=== PATIENT | female | born 1995 | race Two or more races ===

== ENCOUNTER 2021-07-24 09:08 | Inpatient (IN) | payer SELFPAY ==
[2021-07-24] MEDS ORDERED: Sodium Chloride 0.9% 10 ML Syringe FLUSH PRN (09:21)
[2021-07-24] MEDS ORDERED: Nalbuphine 10 MG/1 ML Vial IVPUSH PRN (09:21)
[2021-07-24] MEDS ORDERED: Ondansetron 4 MG/2 ML SDV IVPUSH PRN (09:21)
[2021-07-24] MEDS ORDERED: Calcium Carbonate 500 MG Tab.Chew PO PRN (09:21)
[2021-07-24] MEDS ORDERED: Acetaminophen 325 MG Tab PO PRN (09:21)
[2021-07-24] MEDS ORDERED: Oxytocin/Lactated Ringers 10 UNIT/1,000 ML BAG IV SCH ×2 (09:30)
[2021-07-24] MEDS: Lactated Ringers 1,000 ML IV SCH ×3 (10:13→23:42)
--- NOTE | 2021-07-24 10:57 | PCM.LDHP ---
L&D History of Present Illness - General Date of Service: 07/24/21 Admit Problem/Dx: Patient Status Order with Admit Dx/Problem 07/24/21 09:22 Patient Status [ADT] Routine Admission Diagnosis/Problem Admission Diagnosis/Problem 07/24/21 10:46 Johanne is a 25-year-old 1 para 0 female presently at 38-5/7 weeks gestational age with an COCO of 08/02/2021 was admitted to labor [facility] for induction of labor for nonreassuring testing with a BPP score of 4/8. Source of Information: Patient History Limitations: Reports: No Limitations - History of Present Illness Introduction:: Johanne is a 25-year-old 1 para 0 female presently at 38-5/7 weeks gestational age with an COCO of 08/02/2021 was admitted to labor and delivery for induction of labor for nonreassuring testing with a BPP score of 4/8. 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 She has been followed with weekly biophysical profiles since 32 weeks and monthly ultrasounds prior to that with good results. Her most recent ultrasound on 07/14/2021 prior to today showed growth at 24% with baby at 6 pounds 3 ounces estimated weight. 2-day routine testing with biophysical profile showed a lower biophysical profile score. Recommendation is that patient be brought into labor and delivery and undergo induction of labor. The procedure, risk, benefits, alternatives of care and p ossible increased risk for need of section are all discussed with patient and her . They appear to understand, wish to proceed and given verbal consent. 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 She had menarche at age 11. Cycles every 30 days. Her last menstrual period is fairly certain and started on 10/26/2020. She is not using any control at the time of conception. COCO is based upon this last menstrual period and is supported by multiple ultrasounds during the course of the . Patient's past obstetric history is relatively unremarkable. She denies any abnormal Pap smears. She did have chlamydia early in the and this was treated. Test of cure was negative. course: Patient was initially seen for this at 12 weeks and 2 days. She had an early ultrasound done at that time which correlated well with her LMP dating. She is seen on a very regular basis throughout the . testing was per routine with the exception of monthly ultrasounds because of her uterine anomaly. Her weight gain has been from a pregravid weight of 126 pounds to a weight at term at 159 pounds for a 33 pound increase. Fundal height growth has been appropriate with baby located on the right side of her abdomen in the right uterine horn. Her vital signs been stable. Blood pressures have been normal. Patient has a negative group B strep screen. Chlamydia test was positive early in and was treated. Test of cure was negative. She plans to breast-feed. Prequel noninvasive screen was negative. She has had her Tdap on 05/29/2021. She is rubella immune. Laboratory testing in shows her blood to be O+ with a negative antibody screen. Hemoglobin at first visit was 13.1 g/dL and platelets were 323,000. She is rubella immune. RPR is nonreactive. Urine culture was negative. Hepatitis B surface antigen and HIV assays were both negative. GC was negative. Chlamydia was positive as above and was treated. Second trimester laboratory testing showed a hemoglobin mildly decreased at 11.9 g/dL. Platelets were 307,000. 1 hour GTT was normal at 117. Group B strep screen was negative. Allergies: None Medications: 1. vitamins 1 daily Past medical history: Bicornuate uterus. Past surgical history unremarkable Family history: Mother is alive and well. Father is alive and well. Maternal grandfather is secondary to lung cancer. Was a non-smoker. Maternal grandmother is alive with history of cancer. Had a tumor in her stomach. Paternal grandfather is secondary to heart disease and hypertension related concerns. Paternal grandmother is cause unknown. 1 brother is alive and well. 1 sister is alive and well. No family history of cancer otherwise. No family history of bleeding, clotting, anesthesia, related problems. Social history: Patient is . is [place]. She does not use any significance alcohol, drugs or tobacco. She is a [id number] . Review of systems: Review of systems: In general patient has no complaints. Patient does report good activity. No contractions noted. Skin: Negative Lungs: No infectious symptoms or shortness of breath Cardiovascular: No chest pain or exercise intolerance Breasts: No lumps, changes in size, pain, dimpling, discharge or axillary or supraclavicular concerns. Patient plans to breast-feed. GI: Negative : N body habitus changes related to . Musculoskeletal: Negative Neurological: Negative Physical exam: In general the patient is well-developed, well-nourished, pleasant female of stated age in no acute distress. On last evaluation in clinic on 07/21/2021 patient blood pressure 118/70. Weight was 159.2 with pregravid weight of 126.4. Height is 5 feet 3 inches. Prepregnancy body mass index is 21.3. Skin is warm dry without lesions. HEENT, neck and back within normal limits. Lungs are clear with good breath sounds in all lung castañeda. Cardiovascular exam shows regular and rhythm without murmurs. Abdomen is gravid with last fundal height of 38 cm. Uterus on the right side of her abdomen secondary to right-sided uterine horn . Genital per digital exam shows cervix to be 80% effaced, closed, soft, mid position, -3. Baby is cephalic presenting. Extremities and neurological exam are grossly within normal limits. - Related Data Allergies/Adverse Reactions: Allergies Allergy/AdvReac Type Severity Reaction Status Date / Time No Known Allergies Allergy Verified 07/24/21 09:21 Past Medical History Genitourinary History: Reports: STD REAL ESTATE APPRAISER History: Reports: , Other (See Below) Other OB/BYN History: double edometrial cavities - Past Surgical History HEENT Surgical History: Reports: Oral Surgery Social & Family History - Family History Family Medical History: No Pertinent Family History H&P Review of Systems - Review of Systems: Review Of Systems: See Below L&D Exam - Exam Exam: See Below - Vital Signs Weight: 72.212 kg - Patient Data Lab Results Last 24 hrs: Laboratory Results - last 24 hr 07/24/21 07/24/21 07/24/21 Range/Units 09:40 09:40 09:40 WBC 10.02 (3.98-10.04) K/mm3 RBC 4.27 (3.98-5.22) M/mm3 Hgb 12.4 (11.2-15.7) gm/dl Hct 37.3 (34.1-44.9) % MCV 87.4 (79.4-94.8) fl MCH 29.0 (25.6-32.2) pg MCHC 33.2 (32.2-35.5) g/dl RDW Std Deviation 40.8 (36.4-46.3) fL Plt Count 261 (182-369) K/mm3 MPV 10.6 (9.4-12.3) fl Neut % (Auto) 74.0 H (34.0-71.1) % Lymph % (Auto) 14.8 L (19.3-51.7) % [place] % (Auto) 10.0 (4.7-12.5) % Eos % (Auto) 0.7 (0.7-5.8) Baso % (Auto) 0.2 (0.1-1.2) % Neut # (Auto) 7.42 H (1.56-6.13) K/mm3 Lymph # (Auto) 1.48 (1.18-3.74) K/mm3 [place] # (Auto) 1.00 H (0.24-0.36) K/mm3 Eos # (Auto) 0.07 (0.04-0.36) K/mm3 Baso # (Auto) 0.02 (0.01-0.08) K/mm3 SARS-CoV-2 RNA (OBEY) Negative (NEGATIVE) Blood Type O POSITIVE Result Diagrams: 07/24/21 09:40 - Problem List (1) 38 weeks gestation of SNOMED Code(s): 52883830 ICD Code: Z3A.38 - 38 WEEKS GESTATION OF Status: Acute Current Visit: Yes (2) Abnormal test SNOMED Code(s): 359256327, 203731295 ICD Code: O28.9 - UNSP ABNORMAL FINDINGS ON SCREENING OF MOTHER Status: Acute Current Visit: Yes (3) Bicornate uterus SNOMED Code(s): 98888752 ICD Code: Q51.3 - BICORNATE UTERUS Status: Acute Current Visit: Yes Problem List Initiated/Reviewed/Updated: Yes Orders Last 24hrs: Active Orders 24 hr Category Date Time Status Patient Status [ADT] Routine ADT 07/24/21 09:22 Active Activity as Tolerated [RC] PFP Care 07/24/21 09:22 Active Communication Order [RC] ASDIRECTED Care 07/24/21 09:22 Active Heart Tones [RC] ASDIRECTED Care 07/24/21 09:23 Active Non Stress Test [RC] PER UNIT ROUTINE Care 07/24/21 09:22 Active Notify Provider [RC] PFP Care 07/24/21 09:22 Active Notify Provider [RC] PRN Care 07/24/21 09:22 Active Peripheral IV Care [RC] . DIRECTED Care 07/24/21 09:23 Active Vital Signs [RC] PER UNIT ROUTINE Care 07/24/21 09:22 Active Regular Diet [DIET] Diet 07/24/21 Breakfast Active HEP C VIRUS AB [REF] Stat Lab 07/24/21 09:40 Received RAPID PLASMA REAGIN,RPR [CHEM] Routine Lab 07/24/21 09:40 Received TYPE AND SCREEN [BBK] Stat Lab 07/24/21 09:40 Results Acetaminophen [TylenoL] Med 07/24/21 09:21 Active 650 mg PO Q4H PRN Calcium Carbonate [Tums] Med 07/24/21 09:21 Active 1,000 mg PO Q2H PRN Lactated Ringers [Ringers, Lactated] 1,000 ml Med 07/24/21 09:30 Active IV ASDIRECTED Nalbuphine [Nubain] Med 07/24/21 09:21 Active 10 mg IVPUSH Q2H PRN Ondansetron [Zofran] Med 07/24/21 09:21 Active 4 mg IVPUSH Q4H PRN Oxytocin/Lactated Ringers [Pitocin in LR 10 Units/1,000 Med 07/24/21 09:30 Active ML] 10 unit in 1,000 ml IV .CONTINUOUS Oxytocin/Lactated Ringers [Pitocin in LR 10 Units/1,000 Med 07/24/21 09:30 Active ML] 10 unit in 1,000 ml IV TITRATE Sodium Chloride 0.9% [Saline Flush] Med 07/24/21 09:21 Active 10 ml FLUSH ASDIRECTED PRN Electronic Heart Tones Ext w TOCO [WOMSER] Oth 07/24/21 09:22 Ordered Routine Electronic Heart Tones Internal [WOMSER] Per Unit Oth 07/24/21 09:22 Ordered Routine Peripheral IV Insertion Adult [OM.PC] Routine Oth 07/24/21 09:22 Ordered Resuscitation Status Routine Resus Stat 07/24/21 09:21 Ordered Medication Orders Acetaminophen (Acetaminophen 325 Mg Tab) 650 mg PO Q4H PRN PRN Reason: Pain (Mild 1-3) and fever Calcium Carbonate/Glycine (Calcium Carbonate 500 Mg Tab.Chew) 1,000 mg PO Q2H PRN PRN Reason: Indigestion Oxytocin/Lactated Ringer's (Pitocin In Lr 10 Units/1,000 Ml) 10 unit in 1,000 mls @ 12 mls/hr IV TITRATE AZUCENA; Protocol Last Admin: 07/24/21 10:13 Dose: 2 munits/min, 12 mls/hr Documented by: KELLCOL Oxytocin/Lactated Ringer's (Pitocin In Lr 10 Units/1,000 Ml) 10 unit in 1,000 mls @ 500 mls/hr IV .CONTINUOUS AZUCENA Lactated Ringer's (Ringers, Lactated) 1,000 mls @ 100 mls/hr IV ASDIRECTED AZUCENA Last Admin: 07/24/21 10:13 Dose: 100 mls/hr Documented by: KELLCOL Nalbuphine HCl (Nalbuphine 10 Mg/1 Ml Vial) 10 mg IVPUSH Q2H PRN PRN Reason: Pain Ondansetron HCl (Ondansetron 4 Mg/2 Ml Sdv) 4 mg IVPUSH Q4H PRN PRN Reason: Nausea/Vomiting Sodium Chloride (Sodium Chloride 0.9% 10 Ml Syringe) 10 ml FLUSH ASDIRECTED PRN PRN Reason: Keep Vein Open Assessment/Plan Comment:: 1Shoaib Whiting is a 25-year-old 1 para 0 female presently at 38-5/7 weeks gestational age with an COCO of 08/02/2021 was admitted to labor and delivery for induction of labor for nonreassuring testing with a BPP score of 4/8. 2. Bicornate uterus with in the right uterine horn placing her at high risk for labor, malpresentation, uteroplacental insufficiency, growth restriction, increased risk for inability to tolerate labor. These are discussed in detail with patient and her . 3. Group B strep negative. 4. Patient desires epidural in labor delivery 5. Patient plans to breast-feed. 6. Patient had Tdap during the course of in May 2021 7. Patient is rubella immune. 8. Risk factors for the include the bicornate uterus, mild language barrier Plan: 1. Admit to labor and delivery for induction of labor. Will monitor heart tones closely. 2. Routine admission labs with COVID-19 testing, CBC, RPR. 3. Support breast-feeding decision 4. Epidural as needed for labor analgesia 5. Anticipate .
[2021-07-24] MEDS ORDERED: Oxytocin/Lactated Ringers 20 UNIT/1,000 ML BAG IV SCH ×2 (15:30→21:30)
[2021-07-24] MEDS ORDERED: ePHEDrine 50 MG/ML SDV IVPUSH PRN (15:45)
[2021-07-24] MEDS ORDERED: diphenhydrAMINE 50 MG/ML SDV IVPUSH PRN (15:45)
[2021-07-24] MEDS ORDERED: fentaNYL 100 MCG/2 ML SDV EPIDUR PRN (15:45)
[2021-07-25] MEDS: Bupivacaine/fentaNYL/NS 100 ML Bag EPIDUR PRN ×2 (00:02→08:05)
--- NOTE | 2021-07-25 00:24 | PCM.PREANE ---
Preanesthetic Assessment - Procedure Proposed Procedure: theo - Anesthesia/Transfusion/Family Hx Anesthesia History: Prior Anesthesia Without Reaction Family History of Anesthesia Reaction: No Transfusion History: No Prior Transfusion(s) - Review of Systems General: No Symptoms Pulmonary: No Symptoms Cardiovascular: No Symptoms Gastrointestinal: No Symptoms Neurological: No Symptoms Other: Reports: None - Physical Assessment Vital Signs: Last Vital Signs Temp 98 F 07/24/21 09:30 Pulse 77 07/24/21 09:30 Resp 15 07/24/21 09:30 BP 123/81 07/24/21 09:30 Pulse Ox 98 07/24/21 09:30 Height: 5 ft 3 in Weight: 72.212 kg ASA Class: 2 Mental Status: Alert & Oriented x3 Airway Class: Mallampati = 1 Dentition: Reports: Normal Dentition Thyro-Mental Finger Breadths: 3 Mouth Opening Finger Breadths: 3 ROM/Head Extension: Full Lungs: Clear to Auscultation, Normal Respiratory Effort Cardiovascular: Regular Rate, Regular Rhythm - Lab Values: Laboratory Last Values WBC 10.02 K/mm3 (3.98-10.04) 07/24/21 09:40 RBC 4.27 M/mm3 (3.98-5.22) 07/24/21 09:40 Hgb 12.4 gm/dl (11.2-15.7) 07/24/21 09:40 Hct 37.3 % (34.1-44.9) 07/24/21 09:40 MCV 87.4 fl (79.4-94.8) 07/24/21 09:40 MCH 29.0 pg (25.6-32.2) 07/24/21 09:40 MCHC 33.2 g/dl (32.2-35.5) 07/24/21 09:40 RDW Std Deviation 40.8 fL (36.4-46.3) 07/24/21 09:40 Plt Count 261 K/mm3 (182-369) 07/24/21 09:40 MPV 10.6 fl (9.4-12.3) 07/24/21 09:40 Neut % (Auto) 74.0 % (34.0-71.1) H 07/24/21 09:40 Lymph % (Auto) 14.8 % (19.3-51.7) L 07/24/21 09:40 [place] % (Auto) 10.0 % (4.7-12.5) 07/24/21 09:40 Eos % (Auto) 0.7 (0.7-5.8) 07/24/21 09:40 Baso % (Auto) 0.2 % (0.1-1.2) 07/24/21 09:40 Neut # (Auto) 7.42 K/mm3 (1.56-6.13) H 07/24/21 09:40 Lymph # (Auto) 1.48 K/mm3 (1.18-3.74) 07/24/21 09:40 [place] # (Auto) 1.00 K/mm3 (0.24-0.36) H 07/24/21 09:40 Eos # (Auto) 0.07 K/mm3 (0.04-0.36) 07/24/21 09:40 Baso # (Auto) 0.02 K/mm3 (0.01-0.08) 07/24/21 09:40 SARS-CoV-2 RNA (OBEY) Negative (NEGATIVE) 07/24/21 09:40 Blood Type O POSITIVE 07/24/21 09:40 Gel Antibody Screen Negative 07/24/21 09:40 - Allergies Allergies/Adverse Reactions: Allergies Allergy/AdvReac Type Severity Reaction Status Date / Time No Known Allergies Allergy Verified 07/24/21 09:21 - Blood Blood Available: No - Acknowledgements Anesthesia Type Planned: Epidural Pt an Appropriate Candidate for the Planned Anesthesia: Yes Alternatives and Risks of Anesthesia Discussed w Pt/Guardian: Yes Pt/Guardian Understands and Agrees with Anesthesia Plan: Yes PreAnesthesia Questionnaire Cardiovascular History: Reports: None Respiratory History: Reports: None Gastrointestinal History: Reports: GERD (with preg) Genitourinary History: Reports: STD 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: , Other (See Below) : 1 Para: 0 Other OB/BYN History: double edometrial cavities Musculoskeletal History: Reports: None Oncologic (Cancer) History: Reports: None - Past Surgical History HEENT Surgical History: Reports: Oral Surgery - SUBSTANCE USE Tobacco Use Status *Q: Never Tobacco User Second Hand Smoke Exposure: No Days Per Week of Alcohol Use: 0 Recreational Drug Use History: No - HOME MEDS Home Medications: Home Meds Calcium Carbonate [Calcium] 500 mg PO DAILY 07/24/21 [History] Ferrous Sulfate [Iron] 325 mg PO DAILY 07/24/21 [History] Vits #93/Iron Fum/FA [ Formula Tablet] 1 tab PO DAILY 07/24/21 [History] - CURRENT (IN HOUSE) MEDS Current Meds: Current Medications Acetaminophen (Acetaminophen 325 Mg Tab) 650 mg PO Q4H PRN PRN Reason: Pain (Mild 1-3) and fever Calcium Carbonate/Glycine (Calcium Carbonate 500 Mg Tab.Chew) 1,000 mg PO Q2H PRN PRN Reason: Indigestion Diphenhydramine HCl (Diphenhydramine 50 Mg/Ml Sdv) 25 mg IVPUSH Q6H PRN PRN Reason: pruritis Ephedrine Sulfate (Ephedrine 50 Mg/Ml Sdv) 5 mg IVPUSH ASDIRECTED PRN PRN Reason: Hypotension Fentanyl (Fentanyl 100 Mcg/2 Ml Sdv) 100 mcg EPIDUR Q3H PRN PRN Reason: Pain Last Admin: 07/25/21 00:01 Dose: 100 mcg Documented by: Fentanyl/Bupivacaine HCl (Bupivacaine/Fentanyl/Ns 100 Ml Bag) 100 ml EPIDUR ASDIRECTED PRN PRN Reason: Pain Last Admin: 07/25/21 00:02 Dose: 100 ml Documented by: Oxytocin/Lactated Ringer's (Pitocin In Lr 10 Units/1,000 Ml) 10 unit in 1,000 mls @ 500 mls/hr IV .CONTINUOUS AZUCENA Lactated Ringer's (Ringers, Lactated) 1,000 mls @ 100 mls/hr IV ASDIRECTED AUZCENA Last Admin: 07/24/21 23:42 Dose: 100 mls/hr Documented by: Oxytocin/Lactated Ringer's (Pitocin In Lr 20 Units/1,000 Ml) 20 unit in 1,000 mls @ 60 mls/hr IV TITRATE AZUCENA; Protocol Oxytocin/Lactated Ringer's (Pitocin In Lr 20 Units/1,000 Ml) 20 unit in 1,000 mls @ 66 mls/hr IV TITRATE AZUCENA; Protocol Last Admin: 07/24/21 21:36 Dose: 66 mls/hr Documented by: Nalbuphine HCl (Nalbuphine 10 Mg/1 Ml Vial) 10 mg IVPUSH Q2H PRN PRN Reason: Pain Ondansetron HCl (Ondansetron 4 Mg/2 Ml Sdv) 4 mg IVPUSH Q4H PRN PRN Reason: Nausea/Vomiting Sodium Chloride (Sodium Chloride 0.9% 10 Ml Syringe) 10 ml FLUSH ASDIRECTED PRN PRN Reason: Keep Vein Open Discontinued Medications Oxytocin/Lactated Ringer's (Pitocin In Lr 10 Units/1,000 Ml) 10 unit in 1,000 mls @ 12 mls/hr IV TITRATE AZUCENA; Protocol Last Titration: 07/24/21 20:00 Dose: 20 munits/min, 120 mls/hr Documented by:
[2021-07-25] MEDS: Lactated Ringers 1,000 ML IV SCH ×2 (00:56→08:06)
--- NOTE | 2021-07-25 14:41 | PCM48HPAN ---
Post Anesthesia Note - EVALUATION WITHIN 48HRS OF ANESTHETIC Vital Signs in Normal Range: Yes Patient Participated in Evaluation: Yes Respiratory Function Stable: Yes Airway Patent: Yes Cardiovascular Function Stable: Yes Hydration Status Stable: Yes Pain Control Satisfactory: Yes Nausea and Vomiting Control Satisfactory: Yes Mental Status Recovered: Yes Vital Signs: Last Vital Signs Temp 36.6 C 07/24/21 09:30 Pulse 77 07/24/21 09:30 Resp 15 07/24/21 09:30 BP 123/81 07/24/21 09:30 Pulse Ox 98 07/24/21 09:30
[2021-07-25] MEDS ORDERED: Benzocaine/Menthol 20%-0.5% Spray 78 GM Cannister TOP PRN (15:04)
[2021-07-25] MEDS ORDERED: Witch Hazel Medicated Pads 40/Jar TOP PRN (15:04)
[2021-07-25] MEDS: Docusate Sodium 100 MG Cap PO PRN (15:39)
[2021-07-25] MEDS: Ibuprofen 600 MG Tab PO PRN (15:40)
--- NOTE | 2021-07-25 17:17 | PCM.SN.2 ---
- Free Text/Narrative Note: Delivery note: Stage I: Johanne is a 25-year-old 1 now para 1-0-0-1 0 female admitted on 07/24/2021 at 38-5/7 weeks gestational age with an COCO of 08/02/2021 was admitted to labor and delivery for induction of labor for nonreassuring testing with a BPP score of 4/8. She underwent induction of labor with Pitocin. heart tones are generally reassuring throughout most of the labor. Patient slowly progressed to 2 cm dilation at which point she underwent artificial rupture membranes for augmentation. Amniotic fluid was clear. With this traction ice intensified. She continue to make slow but steady progress to complete cervical dilation and by approximately 0800 hours on 07/25/2021. She had an epidural placed for analgesia with good results. Stage II: Johanne delivered a viable, dorantes, male with Apgars of seven and nine, a weight of 3034 g (6 pounds 11.0 ounces) and a length of 20.5 inches in a direct occiput anterior position. She delivered by vacuum extraction delivery. head position was right occiput posterior and with vacuum extraction rotated to and direct occiput anterior position. The baby's head was minimally asynclitic. Vacuum extraction had been discussed with patient and her prior to proceeding with the procedure. The risks and benefits and alternatives including section were discussed. Verbal consent was given. The delivery was accomplished over two contractions using vacuum extraction. As the head exhibited the perineal area the vacuum cup did pop off did pop off once.. From this point on the patient pushed well and delivered the baby on her own. Was made. He was placed on mom's abdomen. Nose and mouth were bulb suctioned and the baby was dried with warm blanket. Umbilical cord is allowed to pulsate x3 minutes then was clamped x2 and cut by the baby's father. Pitocin was increased to 500 cc/h with the standard solution of 10 units in a liter. This to facilitate increase in uterine tone and decrease likelihood of bleeding. Cord bloods obtained. The umbilical cord had three vessels. The episiotomy was repaired with 3-0 Monocryl suture in routine fashion using epidural analgesia as perineal laceration repair anesthesia. Patient tolerated this well. Stage III: The placenta delivered spontaneously in a Miller presentation. It appeared intact and complete and was discarded per patient desire. Estimated blood loss was 150 cc.
[2021-07-26] MEDS: Ibuprofen 600 MG Tab PO PRN ×3 (03:56→21:32)
--- NOTE | 2021-07-26 08:34 | PCM.SN.2 ---
- Free Text/Narrative Note: Post Progress Note PPD #1 Subjective: Doing well overall. Ambulating without difficulty. Lochia minimal. Voiding without difficulty. Tolerating regular diet without nausea or vomiting. Pain controlled with oral medications. Reports that she is having some mild to moderate cramping with feeding baby and that the Motrin is helping with this. Patient also has pain in the perineum where she had the episiotomy and laceration. Breast-feeding with minimal difficulty. Objective: Vitals: Vital Signs - 24 hr 07/25/21 07/25/21 07/25/21 12:30 14:31 21:13 Temperature 36.9 C 36.4 C Temperature [ 38.3 C H Temporal] Pulse, 85 88 Peripheral Pulse, 105 H Peripheral [ Pulse Oximetry] Respiratory 16 16 16 Rate Blood Pressure 97/64 107/68 Blood Pressure 122/71 [Left Arm] O2 Sat by Pulse 97 96 Oximetry 07/26/21 03:35 Temperature 37.1 C Temperature [ Temporal] Pulse, 83 Peripheral Pulse, Peripheral [ Pulse Oximetry] Respiratory 12 Rate Blood Pressure 112/66 Blood Pressure [Left Arm] O2 Sat by Pulse 97 Oximetry Physical Exam General: Alert and oriented, no acute distress Lungs: Clear to auscultation bilaterally Heart: Regular rate and rhythm Abdomen: Soft, minimal appropriate tenderness, non-distended, fundus midline, nontender, and at the umbilicus Extremities: 1+ edema in bilateral lower extremities, no calf tenderness bilaterally Laboratory Results - last 24 hr 07/24/21 Range/Units 09:40 RPR Non-reactive (NONREACTIVE) ASSESSMENT: 25-year-old female -0-0-1 s/p vacuum-assisted vaginal delivery PPD #1, complicated by bicornate uterus PLAN: Doing well Breast-feeding with minimal difficulty. Assist as needed Lochia minimal. Continue to monitor for appropriate lochia. Continue routine care Anticipate discharge home tomorrow Efrain Rodas MD 8:34 AM 07/26/2021
[2021-07-26] MEDS ORDERED: Calcium Carbonate 500 MG Tab.Chew PO SCH (09:00)
[2021-07-26] MEDS ORDERED: Non-Formulary Medication 1 Each (Prenatal Vits #93/Iron Fum/Fa [Prenatal Formula Tablet] 1 PO SCH (09:00)
[2021-07-26] MEDS: Prenatal Multivitamin with Calcium/Folic Acid/Iron Tab PO SCH (09:16)
[2021-07-26] MEDS: Docusate Sodium 100 MG Cap PO PRN ×2 (09:16→21:32)
[2021-07-27] MEDS: Prenatal Multivitamin with Calcium/Folic Acid/Iron Tab PO SCH (09:51)
[2021-07-27] MEDS: Docusate Sodium 100 MG Cap PO PRN (09:51)
--- NOTE | 2021-07-27 11:13 | PCM.SN.2 ---
- Free Text/Narrative Note: Post Progress Note PPD #2 Subjective: Doing well overall. Ambulating without difficulty. Lochia minimal. Voiding without difficulty. Tolerating regular diet without nausea or vomiting. Pain controlled with oral medications. Reports that her cramping is improving and reports only mild cramping with feeding baby. She states that the Motrin is helping with this. Patient also has pain in the perineum where she had the episiotomy and laceration. Breast-feeding with minimal difficulty. Objective: Vitals: Vital Signs - 24 hr 07/26/21 07/26/21 07/27/21 17:10 21:25 02:41 Temperature 37.3 C 37.4 C 36.8 C Pulse, 82 86 80 Peripheral Respiratory 14 16 16 Rate Blood Pressure 111/71 121/77 119/79 O2 Sat by Pulse 95 98 97 Oximetry 07/27/21 09:54 Temperature 37.7 C Pulse, 92 Peripheral Respiratory 14 Rate Blood Pressure 111/69 O2 Sat by Pulse 98 Oximetry Physical Exam General: Alert and oriented, no acute distress Lungs: Clear to auscultation bilaterally Heart: Regular rate and rhythm Abdomen: Soft, minimal appropriate tenderness, non-distended, fundus midline, nontender, and 1 fingerbreadth below the umbilicus Extremities: No edema in bilateral lower extremities, no calf tenderness bilaterally ASSESSMENT: 25-year-old female -0-0-1 s/p vacuum-assisted vaginal delivery PPD #2, complicated by bicornate uterus PLAN: Doing well Breast-feeding with minimal difficulty. Assist as needed Lochia minimal. Continue to monitor for appropriate lochia. Continue routine care Discharge home today Efrain Rodas MD 11:11 AM 07/27/2021
--- NOTE | 2021-07-27 11:22 | PCM.DCSUM1 ---
Discharge Summary - Hospital Course Free Text/Narrative:: Delivery note: Stage I: Johanne is a 25-year-old 1 now para 1-0-0-1 0 female admitted on 07/24/2021 at 38-5/7 weeks gestational age with an COCO of 08/02/2021 was admitted to labor and delivery for induction of labor for nonreassuring testing with a BPP score of 4/8. She underwent induction of labor with Pitocin. heart tones are generally reassuring throughout most of the labor. Patient slowly progressed to 2 cm dilation at which point she underwent artificial rupture membranes for augmentation. Amniotic fluid was clear. With this traction ice intensified. She continue to make slow but steady progress to complete cervical dilation and by approximately 0800 hours on 07/25/2021. She had an epidural placed for analgesia with good results. Stage II: Johanne delivered a viable, dorantes, male with Apgars of seven and nine, a weight of 3034 g (6 pounds 11.0 ounces) and a length of 20.5 inches in a direct occiput anterior position. She delivered by vacuum extraction delivery. head position was right occiput posterior and with vacuum extraction rotated to and direct occiput anterior position. The baby's head was minimally asynclitic. Vacuum extraction had been discussed with patient and her prior to proceeding with the procedure. The risks and benefits and alternatives including section were discussed. Verbal consent was given. The delivery was accomplished over two contractions using vacuum extraction. As the head exhibited the perineal area the vacuum cup did pop off did pop off once.. From this point on the patient pushed well and delivered the baby on her own. Was made. He was placed on mom's abdomen. Nose and mouth were bulb suctioned and the baby was dried with warm blanket. Umbilical cord is allowed to pulsate x3 minutes then was clamped x2 and cut by the baby's father. Pitocin was increased to 500 cc/h with the standard solution of 10 units in a liter. This to facilitate increase in uterine tone and decrease likelihood of bleeding. Cord bloods obtained. The umbilical cord had three vessels. The episiotomy was repaired with 3-0 Monocryl suture in routine fashion using epidural analgesia as perineal laceration repair anesthesia. Patient tolerated this well. Stage III: The placenta delivered spontaneously in a Miller presentation. It appeared intact and complete and was discarded per patient desire. Estimated blood loss was 150 cc. Diagnosis: Stroke: No - Discharge Data Discharge Date: 07/27/21 Discharge Disposition: Home, Self-Care 01 Condition: Good - Referral to Home Health Primary Care Physician: PCP None - Discharge Diagnosis/Problem(s) (1) Vaginal delivery SNOMED Code(s): 817920836 ICD Code: O80 - ENCOUNTER FOR FULL-TERM UNCOMPLICATED DELIVERY Status: Acute Current Visit: Yes (2) Vacuum extractor delivery, delivered SNOMED Code(s): 322055979 ICD Code: O75.9 - COMPLICATION OF LABOR AND DELIVERY, UNSPECIFIED Status: Acute Current Visit: Yes (3) Second degree perineal laceration during delivery SNOMED Code(s): 9389326 ICD Code: O70.1 - SECOND DEGREE PERINEAL LACERATION DURING DELIVERY Status: Acute Current Visit: Yes (4) 38 weeks gestation of SNOMED Code(s): 35854846 ICD Code: Z3A.38 - 38 WEEKS GESTATION OF Status: Acute Current Visit: Yes (5) Abnormal test SNOMED Code(s): 586445214, 222771792 ICD Code: O28.9 - UNSP ABNORMAL FINDINGS ON SCREENING OF MOTHER Status: Acute Current Visit: Yes (6) Bicornate uterus SNOMED Code(s): 62379071 ICD Code: Q51.3 - BICORNATE UTERUS Status: Acute Current Visit: Yes - Patient Summary/Data Complications: None Consults: None Hospital Course: Johanne Melendez was admitted for induction of labor in the setting of nonreassuring testing with a BPP of 4/8. On admission her cervix was closed. She was GBS negative. She was given pitocin for induction of labor. She had artificial rupture of membranes with clear fluid. She was given an epidural for anesthesia. She progressed to complete and began pushing. On 07/25/2021 she had a vacuum-assisted vaginal delivery of a live male infant at 10:19. Apgars of 7 and 9. Weight of 3034 g (6 pounds 11 ounce). Her course was uneventful. Her pain was well controlled and she had minimal lochia. She was ambulating, tolerating a regular diet and voiding normally. She was breast-feeding with minimal difficulty. She was afebrile and her hematocrit was 37.3 on admission. She desired to be discharged home on the morning of PPD #2. Her blood type is O+. - Patient Instructions Diet: Regular Diet as Tolerated Activity: Apply Ice, As Tolerated Activity, Other: Nothing in the vagina for 6 weeks Driving: May Drive Today Showering/Bathing: May Shower Notify Provider of: Fever, Increased Pain, Swelling and Redness, Drainage, Nausea and/or Vomiting Other/Special Instructions: Please contact your physician's office if you have heavy vaginal bleeding enough to soak a pad in less than an hour for several hours. Monitor for any signs of an infection in the breasts with severe pain or redness of the breast. - Discharge Plan *PRESCRIPTION DRUG MONITORING PROGRAM REVIEWED*: Not Applicable *COPY OF PRESCRIPTION DRUG MONITORING REPORT IN PATIENT SADA: Not Applicable Home Medications: Home Meds Calcium Carbonate [Calcium] 500 mg PO DAILY 07/24/21 [History] Ferrous Sulfate [Iron] 325 mg PO DAILY 07/24/21 [History] Vits #93/Iron Fum/FA [ Formula Tablet] 1 tab PO DAILY 07/24/21 [History] Acetaminophen [Tylenol] 650 mg PO Q6H PRN tablet 07/27/21 [Rx] Benzocaine/Menthol [Dermoplast Pain Relief 20%-0.5% Wolsey] 1 spray TOP ASDIRECTED PRN canister 07/27/21 [Rx] Docusate Sodium [Colace] 100 mg PO BID PRN cap 07/27/21 [Rx] Ibuprofen [Motrin] 600 mg PO Q6H PRN tablet 07/27/21 [Rx] joellen Calderon [Tucks] 1 pad TOP ASDIRECTED PRN pad 07/27/21 [Rx] Referrals: Kostas Purdy MD [Physician] - (Follow-up in 2 weeks for routine visit or earlier as needed) - Discharge Summary/Plan Comment DC Time >30 min.: No Total # of Minutes for Discharge Time: 15 minutes - Patient Data Vitals - Most Recent: Last Vital Signs Temp 37.7 C 07/27/21 09:54 Pulse 92 07/27/21 09:54 Resp 14 07/27/21 09:54 BP 111/69 07/27/21 09:54 Pulse Ox 98 07/27/21 09:54 Weight - Most Recent: 72.212 kg Med Orders - Current: Current Medications Acetaminophen (Acetaminophen 325 Mg Tab) 650 mg PO Q4H PRN PRN Reason: Pain (Mild 1-3) and fever Last Admin: 07/25/21 11:19 Dose: 650 mg Documented by: Benzocaine/Menthol (Benzocaine/Menthol 20%-0.5% Wolsey 78 Gm Cannister) 0 gm TOP ASDIRECTED PRN PRN Reason: Perineal Comfort Measure Last Admin: 07/25/21 15:39 Dose: 1 can Documented by: Calcium Carbonate/Glycine (Calcium Carbonate 500 Mg Tab.Chew) 1,000 mg PO Q2H PRN PRN Reason: Indigestion Calcium Carbonate/Glycine (Calcium Carbonate 500 Mg Tab.Chew) 500 mg PO DAILY AZUCENA Last Admin: 07/26/21 17:01 Dose: Not Given Documented by: Diphenhydramine HCl (Diphenhydramine 50 Mg/Ml Sdv) 25 mg IVPUSH Q6H PRN PRN Reason: pruritis Docusate Sodium (Docusate Sodium 100 Mg Cap) 100 mg PO BID PRN PRN Reason: Constipation Last Admin: 07/27/21 09:51 Dose: 100 mg Documented by: Ephedrine Sulfate (Ephedrine 50 Mg/Ml Sdv) 5 mg IVPUSH ASDIRECTED PRN PRN Reason: Hypotension Oxytocin/Lactated Ringer's (Pitocin In Lr 10 Units/1,000 Ml) 10 unit in 1,000 mls @ 500 mls/hr IV .CONTINUOUS AZUCENA Lactated Ringer's (Ringers, Lactated) 1,000 mls @ 100 mls/hr IV ASDIRECTED AZUCENA Last Admin: 07/25/21 08:06 Dose: 100 mls/hr Documented by: Oxytocin/Lactated Ringer's (Pitocin In Lr 20 Units/1,000 Ml) 20 unit in 1,000 mls @ 60 mls/hr IV TITRATE AZUCENA; Protocol Last Admin: 07/25/21 09:58 Dose: 60 mls/hr Documented by: Oxytocin/Lactated Ringer's (Pitocin In Lr 20 Units/1,000 Ml) 20 unit in 1,000 mls @ 66 mls/hr IV TITRATE AZUCENA; Protocol Last Admin: 07/24/21 21:36 Dose: 66 mls/hr Documented by: Ibuprofen (Ibuprofen 600 Mg Tab) 600 mg PO Q6H PRN PRN Reason: Pain Last Admin: 07/26/21 21:32 Dose: 600 mg Documented by: Nalbuphine HCl (Nalbuphine 10 Mg/1 Ml Vial) 10 mg IVPUSH Q2H PRN PRN Reason: Pain Ondansetron HCl (Ondansetron 4 Mg/2 Ml Sdv) 4 mg IVPUSH Q4H PRN PRN Reason: Nausea/Vomiting Prenat Multivit/[place]/Iron/Folic Ac ( Multivitamin With Calcium/Folic Acid/Iron Tab) 1 each PO DAILY AZUCENA Last Admin: 07/27/21 09:51 Dose: 1 each Documented by: Sodium Chloride (Sodium Chloride 0.9% 10 Ml Syringe) 10 ml FLUSH ASDIRECTED PRN PRN Reason: Keep Vein Open Witch Kassie (Witch Kassie Medicated Pads 40/Jar) 1 pad TOP ASDIRECTED PRN PRN Reason: Perineal Comfort Measure Last Admin: 07/25/21 15:39 Dose: 1 jar Documented by: Discontinued Medications Fentanyl (Fentanyl 100 Mcg/2 Ml Sdv) 100 mcg EPIDUR Q3H PRN PRN Reason: Pain Last Admin: 07/25/21 00:01 Dose: 100 mcg Documented by: Fentanyl/Bupivacaine HCl (Bupivacaine/Fentanyl/Ns 100 Ml Bag) 100 ml EPIDUR ASDIRECTED PRN PRN Reason: Pain Last Admin: 07/25/21 08:05 Dose: 100 ml Documented by: Oxytocin/Lactated Ringer's (Pitocin In Lr 10 Units/1,000 Ml) 10 unit in 1,000 mls @ 12 mls/hr IV TITRATE AZUCENA; Protocol Last Titration: 07/24/21 20:00 Dose: 20 munits/min, 120 mls/hr Documented by: Non-Formulary Medication ( Vits #93/Iron Fum/Fa [ Formula Tablet]) 1 tab PO DAILY AZUCENA
== END 2021-07-27 12:37 | disposition home or self-care (01) | DRG 807 ==
LOC: JD.OB 09:08 → INTOOBSV 09:08 → JD.OB 10:19 → OBSVTOIN 07-25 10:19 → JD.OB 07-25 10:20
PROVIDERS: ADMIT Obstetrics & Gynecology; ATTEND Obstetrics & Gynecology
PROC: 10D07Z6 Extraction of Products of Conception, Vacuum, Via Natural or Artificial Opening (ICD-10-PCS; principal; 2021-07-25)
PROC: 10907ZC Drainage of Amniotic Fluid, Therapeutic from Products of Conception, Via Natural or Artificial Opening (ICD-10-PCS; 2021-07-25)
PROC: 3E033VJ Introduction of Other Hormone into Peripheral Vein, Percutaneous Approach (ICD-10-PCS; 2021-07-25)
PROC: 0W8NXZZ Division of Female Perineum, External Approach (ICD-10-PCS; 2021-07-25)
PROC: 3E0R3BZ Introduction of Anesthetic Agent into Spinal Canal, Percutaneous Approach (ICD-10-PCS; 2021-07-25)
PROC: 00HU33Z Insertion of Infusion Device into Spinal Canal, Percutaneous Approach (ICD-10-PCS; 2021-07-25)
DX: O34.03 Maternal care for unspecified congenital malformation of uterus, third trimester (principal); Z37.0 Single live birth; Z20.822 Contact with and (suspected) exposure to COVID-19; Z3A.38 38 weeks gestation of pregnancy; Q51.3 Bicornate uterus
CPT/HCPCS: 01967; 36415; 51702; 59025; 59409; 85025; 86592; 86803; 86850; 86900; 86901; A9270-GY; J2590; J3010; J7120; U0002

== ENCOUNTER 2023-02-07 12:02 | Emergency (ER) | payer SELFPAY ==
[2023-02-07] MEDS ORDERED: Sodium Chloride 0.9% 1,000 ML IV STA (12:46)
[2023-02-07] MEDS ORDERED: Sodium Chloride 0.9% 10 ML Syringe FLUSH PRN (12:46)
[2023-02-07] MEDS ORDERED: Ondansetron 4 MG/2 ML SDV IVPUSH ONE (12:46)
[2023-02-07 13:29] LABS: ESTIMATED GFR 125 mL/min (>60)
== END 2023-02-07 15:25 | disposition home or self-care (01) ==
LOC: JD.ED 12:02
DX: O98.513 Other viral diseases complicating pregnancy, third trimester (principal); A08.4 Viral intestinal infection, unspecified; Z3A.32 32 weeks gestation of pregnancy
CPT/HCPCS: 36415; 80053; 83690; 85025; 96361; 96374; 99284; J2405; J3490; J7030; 99283

== ENCOUNTER 2023-03-20 21:30 | Inpatient (IN) | payer SELFPAY ==
[2023-03-20] MEDS ORDERED: Citric Acid/Sodium Citrate Solution 30 ML Cup PO ONE (22:12)
[2023-03-20] MEDS ORDERED: Metoclopramide 10 MG/2 ML SDV IVPUSH ONE (22:12)
[2023-03-20] MEDS ORDERED: ceFAZolin 2 GM in Sodium Chloride 0.9% 50 ML IV ONE (22:12)
[2023-03-20] MEDS ORDERED: Lactated Ringers 1,000 ML IV SCH (22:15)
[2023-03-20] MEDS ORDERED: Azithromycin 500 MG in Sodium Chloride 0.9% 250 ML IV ONE (22:19)
[2023-03-20] MEDS ORDERED: Morphine PF 1 MG/ML Amp ONE (22:38)
[2023-03-20] MEDS ORDERED: Oxytocin 10 Units/1 ML SDV ONE (22:38)
[2023-03-20] MEDS ORDERED: Ondansetron 4 MG/2 ML SDV ONE (22:38)
[2023-03-20] MEDS ORDERED: ceFAZolin 2 GM Vial ONE (23:00)
[2023-03-20] MEDS ORDERED: ePHEDrine 50 MG/ML SDV ONE (23:18)
[2023-03-20] MEDS ORDERED: Ketorolac 30 MG/ML SDV ONE (23:19)
[2023-03-20] MEDS ORDERED: Methylergonovine 0.2 MG/1 ML Amp ONE (23:20)
[2023-03-20] MEDS ORDERED: Phenylephrine 1% 10 MG/ML SDV ONE (23:24)
[2023-03-21] MEDS ORDERED: Dextrose 5%-Lactated Ringers 1,000 ML IV SCH (00:29)
[2023-03-21] MEDS ORDERED: diphenhydrAMINE 50 MG/ML SDV IVPUSH PRN (00:29)
[2023-03-21] MEDS ORDERED: Acetaminophen/oxyCODONE 325-5 MG Tab PO PRN (00:29)
[2023-03-21] MEDS ORDERED: ePHEDrine 50 MG/ML SDV IVPUSH PRN (00:29)
[2023-03-21] MEDS: Ketorolac 30 MG/ML SDV IVPUSH SCH ×3 (06:03→17:44)
[2023-03-21] MEDS: Acetaminophen/oxyCODONE 325-5 MG Tab PO PRN ×2 (08:15→17:43)
[2023-03-21] MEDS ORDERED: Sodium Chloride 0.9% 10 ML Syringe FLUSH SCH (09:00)
[2023-03-21] MEDS: Docusate Sodium 100 MG Cap PO PRN (16:01)
[2023-03-22] MEDS: Ibuprofen 600 MG Tab PO PRN ×2 (00:34→08:58)
[2023-03-22] MEDS: Acetaminophen/oxyCODONE 325-5 MG Tab PO PRN ×2 (04:02→08:58)
[2023-03-22] MEDS: Docusate Sodium 100 MG Cap PO PRN (04:03)
== END 2023-03-22 10:19 | disposition home or self-care (01) | DRG 788 ==
LOC: JD.OBCHECK 21:30 → JD.OB 22:13 → UNDOADMOB 22:13 → OBSVTOIN 23:46 → JD.OBCHECK 03-22 10:19 → UNDODISOB 03-22 10:19
PROVIDERS: ADMIT Obstetrics & Gynecology; ATTEND Obstetrics & Gynecology
PROC: 10D00Z1 Extraction of Products of Conception, Low, Open Approach (ICD-10-PCS; principal; 2023-03-20)
DX: O32.1XX0 Maternal care for breech presentation, not applicable or unspecified (principal); O42.02 Full-term premature rupture of membranes, onset of labor within 24 hours of rupture; O34.03 Maternal care for unspecified congenital malformation of uterus, third trimester; Q51.3 Bicornate uterus; Z37.0 Single live birth; Z3A.38 38 weeks gestation of pregnancy; Z86.16 Personal history of COVID-19
CPT/HCPCS: 01961; 36415; 59025; 82947; 84112; 85025; 85027; 86592; 86850; 86900; 86901; A9270-GY; J0456; J0690; J1885; J2210; J2274; J2370; J2405; J2590; J2765; J3490; J7050; J7120; J7121